=== PATIENT | female | born 1980 | race African-American/Black ===

== ENCOUNTER 2018-03-16 15:46 | Emergency (ER) | payer OTHER ==
[~2018-03-16] VITALS: Ht 162.6 cm; Wt 59.0 kg
[2018-03-16 16:28] LABS: BASO # 0.1 x10^3/uL (0.0-0.2); BASO % 1 % (0-3); EOS # 0.1 x10^3/uL (0.0-0.7); EOS % 2 % (0-3); HEMATOCRIT 39.3 % (36.0-47.0); HEMOGLOBIN 12.8 g/dL (12.0-15.5); LYMPH # 2.8 x10^3/uL (1.0-4.8); LYMPH % 44 % (24-48); MEAN CORPUSCULAR HEMOGLOBIN 28 pg (25-35); MEAN CORPUSCULAR HGB CONC 33 g/dL (31-37); MEAN CORPUSCULAR VOLUME 87 fL (79-100); MONO # 0.6 x10^3/uL (0.0-1.1); MONO % 9 % (0-9); NEUT # 2.8 x10^3uL (1.8-7.7); NEUT % 44 % (31-73); PLATELET COUNT 252 x10^3/uL (140-400); RED CELL DISTRIBUTION WIDTH 13.7 % (11.5-14.5); WHITE BLOOD COUNT 6.4 x10^3/uL (4.0-11.0)
[2018-03-16] MEDS ORDERED: ASPIRIN 81 MG TAB.CHEW PO ONE (16:30)
--- NOTE | 2018-03-16 16:45 | RAD ---
Portable chest, 03/16/2018: HISTORY: Chest pain The heart size and pulmonary vascularity are normal. No pulmonary infiltrate is seen. There is no evidence of pleural fluid. IMPRESSION: No acute cardiopulmonary abnormality is detected. Electronically signed by: Giorgio Jeff MD (03/16/2018 4:42 PM) [facility]
[2018-03-16 16:47] LABS: ALBUMIN/GLOBULIN RATIO 1.1 (1.0-1.7); CALCIUM 8.9 mg/dL (8.5-10.1); GFR 74.7; POTASSIUM 4.2 mmol/L (3.5-5.1); TOTAL BILIRUBIN 0.2 mg/dL (0.2-1.0); TOTAL PROTEIN 7.7 g/dL (6.4-8.2)
--- NOTE | 2018-03-16 17:22 | EKG ---
[address] [address] Test Date: 2018-03-16 Test Time: 15:54:39 Pat Name: POLA RUBIO Department: Room: Gender: F [employer]: : 1980 Requested By: JOHN CARABALLO Order Number: [id number] Reading MD: Measurements Intervals [place] Rate: 81 P: 58 UT: 156 QRS: 21 QRSD: 72 T: 49 QT: 354 QTc: 412 Interpretive Statements SINUS RHYTHM LOW LIMB LEAD VOLTAGE NO SPECIFIC ECG ABNORMALITIES RI6.01 Unconfirmed report No previous ECG available for comparison
[2018-03-16 18:00] VITALS: BP 115/74
[2018-03-16] MEDS ORDERED: IBUP600T16 PO (18:04)
--- NOTE | 2018-03-16 18:04 | PHYS DOC ---
Past History Past Medical History: Other (cardiac arrhythmia) Smoking: Non-smoker Adult General Chief Complaint Chief Complaint: CHEST PAIN HPI HPI Patient is a 37-year-old female patient who presents with complaining of left- sided chest pain. Patient states she had 1 episodes of sharp left arm pain with radiated to left-side chest pain yesterday that last about one or 2 minutes as a severe pain without shortness of breath, nausea, vomiting, palpitation fever and chills. Patient complaining of episodes of aching pain in left lateral chest since yesterday with movement of her arm without other symptoms. Review of Systems Review of Systems Constitutional: Denies fever or chills [] Eyes: Denies change in visual acuity, redness, or eye pain [] HENT: Denies nasal congestion or sore throat [] Respiratory: Denies cough or shortness of breath [] Cardiovascular: No additional information not addressed in HPI [] GI: Denies abdominal pain, nausea, vomiting, bloody stools or diarrhea [] : Denies dysuria or hematuria [] Musculoskeletal: Denies back pain or joint pain [] Integument: Denies rash or skin lesions [] Neurologic: Denies headache, focal weakness or sensory changes [] Endocrine: Denies polyuria or polydipsia [] All other systems were reviewed and found to be within normal limits, except as documented in this note. Current Medications Current Medications Current Medications Medications (Trade) Dose Ordered Sig/Pedro Pablo Start Time Stop Time Status Last Admin Dose Admin Aspirin (Children'S Aspirin) 324 mg 1X ONCE 03/16/18 16:30 03/16/18 16:31 DC 03/16/18 16:55 324 MG Ketorolac Tromethamine (Toradol 30mg Vial) 30 mg 1X ONCE 03/16/18 17:45 03/16/18 17:46 UNV Allergies Allergies Allergies Coded Allergies Type Severity Reaction Last Updated Verified No Known Drug Allergies 03/16/18 No Physical Exam Physical Exam Constitutional: Well developed, well nourished, no acute distress, non-toxic appearance. [] HENT: Normocephalic, atraumatic, oropharynx moist, no oral exudates, nose normal. [] Eyes: PERRLA, EOMI, conjunctiva normal, no discharge. [] Neck: Normal range of motion, no tenderness, supple, no stridor. [] Cardiovascular:Heart rate regular rhythm, no murmur [] Lungs & Thorax: Bilateral breath sounds clear to auscultation [] Abdomen: Bowel sounds normal, soft, no tenderness, no masses, no pulsatile masses. [] Skin: Warm, dry, no erythema, no rash. [] Back: No tenderness, no CVA tenderness. [] Extremities: No tenderness, no cyanosis, no clubbing, ROM intact, no edema. [] Neurologic: Alert and oriented X 3, normal motor function, normal sensory function, no focal deficits noted. [] Psychologic: Affect normal, judgement normal, mood normal. [] Current Patient Data Lab Results Laboratory Tests Test 03/16/18 16:10 03/16/18 16:55 White Blood Count 6.4 x10^3/uL (4.0-11.0) Red Blood Count 4.50 x10^6/uL (3.50-5.40) Hemoglobin 12.8 g/dL (12.0-15.5) Hematocrit 39.3 % (36.0-47.0) Mean Corpuscular Volume 87 fL (79-100) Mean Corpuscular Hemoglobin 28 pg (25-35) Mean Corpuscular Hemoglobin Concent 33 g/dL (31-37) Red Cell Distribution Width 13.7 % (11.5-14.5) Platelet Count 252 x10^3/uL (140-400) Neutrophils (%) (Auto) 44 % (31-73) Lymphocytes (%) (Auto) 44 % (24-48) Monocytes (%) (Auto) 9 % (0-9) Eosinophils (%) (Auto) 2 % (0-3) Basophils (%) (Auto) 1 % (0-3) Neutrophils # (Auto) 2.8 x10^3uL (1.8-7.7) Lymphocytes # (Auto) 2.8 x10^3/uL (1.0-4.8) Monocytes # (Auto) 0.6 x10^3/uL (0.0-1.1) Eosinophils # (Auto) 0.1 x10^3/uL (0.0-0.7) Basophils # (Auto) 0.1 x10^3/uL (0.0-0.2) Sodium Level 138 mmol/L (136-145) Potassium Level 4.2 mmol/L (3.5-5.1) Chloride Level 102 mmol/L (98-107) Carbon Dioxide Level 27 mmol/L (21-32) Anion Gap 9 (6-14) Blood Urea Nitrogen 18 mg/dL (7-20) Creatinine 1.0 mg/dL (0.6-1.0) Estimated GFR (Cockcroft-Gault) 74.7 BUN/Creatinine Ratio 18 (6-20) Glucose Level 80 mg/dL (70-99) Calcium Level 8.9 mg/dL (8.5-10.1) Magnesium Level 2.0 mg/dL (1.8-2.4) Total Bilirubin 0.2 mg/dL (0.2-1.0) Aspartate Amino Transferase (AST) 24 U/L (15-37) Alanine Aminotransferase (ALT) 25 U/L (14-59) Alkaline Phosphatase 49 U/L (46-116) Creatine Kinase 158 U/L (26-192) Troponin I Quantitative < 0.017 ng/mL (0-0.055) HL-Oke-D-Type Natriuretic Peptide 17 pg/mL (0-124) Total Protein 7.7 g/dL (6.4-8.2) Albumin 4.0 g/dL (3.4-5.0) Albumin/Globulin Ratio 1.1 (1.0-1.7) Lipase 150 U/L (73-393) D-Dimer (Ina) 0.26 mg/L (0.00-0.50) EKG EKG EKG interpreted by me. EKG at 1554 showed normal sinus rhythm at rate of 81, normal intervals and axis, no acute ST and T-wave abnormalities. Radiology/Procedures Radiology/Procedures [address] [address] IMAGING REPORT Signed PATIENT: POLA RUBIO ACCOUNT: [id number] : 1980 LOCATION: ER AGE: 37 SEX: F EXAM STATUS: REG ER ORD. PHYSICIAN: JOHN CARABALLO MD REASON: chest pain PROCEDURE: PORTABLE CHEST 1V Portable chest, 03/16/2018: HISTORY: Chest pain The heart size and pulmonary vascularity are normal. No pulmonary infiltrate is seen. There is no evidence of pleural fluid. IMPRESSION: No acute cardiopulmonary abnormality is detected. Electronically signed by: Giorgio Jeff MD (03/16/2018 4:42 PM) [facility] DICTATED AND SIGNED BY: GIORGIO JEFF MD DATE: 03/16/18 8670 CC: JOHN CARABALLO MD; PCP,UNKNOWN ~ Course & Med Decision Making Course & Med Decision Making Pertinent Labs and Imaging studies reviewed. (See chart for details) Evaluation of patient in ER showed 37-year-old female patient with complaining of left-sided chest pain with movement of her arm. Patient had unremarkable physical exam and EKG and labs. Patient treated with Toradol and felt better. Plan discharge patient home with diagnosis of musculoskeletal chest pain. Patient did not have cardiac risk factor. Dragon Disclaimer Dragon Disclaimer This electronic medical record was generated, in whole or in part, using a voice recognition dictation system. Departure Departure: Impression: Primary Impression: Musculoskeletal chest pain Disposition: HOME, SELF-CARE (@1803) Condition: IMPROVED Referrals: PCP,UNKNOWN (PCP) Patient Instructions: Chest Wall Pain Additional Instructions: Drink plenty of liquids Follow-up with your primary care physician in 3-5 days Return to ER if not getting better Apply ice on the affected area Scripts Ibuprofen (IBUPROFEN) 600 Mg Tablet 600 MG PO TID for pain, #20 TAB Prov: JOHN CARABALLO MD 03/16/18 JOHN CARABALLO MD Mar 16, 2018 18:04
[2018-03-16] MEDS ORDERED: KETOROLAC 30 MG/ML VIAL. IV ONE (18:15)
== END 2018-03-16 18:15 | disposition home or self-care (01) ==
LOC: ER 15:46
DX: R07.89 Other chest pain (principal); M79.602 Pain in left arm
CPT/HCPCS: 36415; 71045; 80053; 82550; 83690; 83735; 83880; 84484; 85025; 85379; 93005; 96374; 99284; J1885